=== PATIENT | male | born 1935 | race Caucasian/White ===

== ENCOUNTER 2016-11-13 22:44 | Inpatient (IN) | payer MEDICARE ==
[2016-11-14 00:11] LABS: Hematocrit 45 % (42-52); Hemoglobin 14.5 g/dl (14.0-18.0); Mean Corpuscular HGB Conc 33 g/dl (31-36); Mean Corpuscular Hemoglobin 29 pg (27-31); Mean Corpuscular Volume 89 fL (80-94); Mean Platelet Volume 8 um3 (7.4-10.4); Red Blood Count 5.01 10^6/ul (4.0-5.4); Red Cell Distribution Width 14 % (10.5-15)
[2016-11-14 00:13] LABS: Comments Flag Yes
[2016-11-14 00:14] LABS: Add Diff/Slide Review? Slide Review Added
[2016-11-14 00:15] LABS: Albumin 3.7 g/dL (3.2-5.2); BUN/Creatinine Ratio 25.8 (8-20); Calcium 9.3 mg/dL (8.6-10.3); EGFR African American 69.5 (>60); EGFR Non-African American 54.1 (>60); Total Protein 6.7 g/dL (6.4-8.9)
[2016-11-14 00:22] LABS: Troponin I 20.22 ng/mL (<0.04)
[2016-11-14] MEDS ORDERED: DOPamine 200 MG/250 ML IVPREM* 200 MG in PREMIX* 0 ML IV ONE (00:34)
[2016-11-14] MEDS ORDERED: Heparin for STEMI(*) 5,000 UNITS/ML 1 ML VIAL IV ONE (00:36)
[2016-11-14] MEDS ORDERED: Heparin VIAL(*) 5000 UNITS/ML VIAL (FIVE THOUSAND) ONE (00:39)
[2016-11-14] MEDS ORDERED: Ticagrelor* 90 MG TAB PO ONE (00:39)
[2016-11-14] MEDS ORDERED: DOPamine 200 MG/250 ML IVPREM* 200 MG/250 ML ML IV ONE (00:39)
[2016-11-14] MEDS: Ticagrelor* 90 MG TAB PO ONE ×2 (00:43→06:27)
[2016-11-14] MEDS ORDERED: Succinylcholine* 20 MG/ML 10 ML VIAL ONE (00:45)
[2016-11-14] MEDS ORDERED: Propofol* 100 ML ONE ×8 (00:50→22:35)
[2016-11-14] MEDS ORDERED: Etomidate* 2 MG/ML 20 ML VIAL (40 MG) ONE (00:50)
[2016-11-14] MEDS ORDERED: fentaNYL* 50 MCG/ML 2 ML VIAL (100 MCG VIAL) ONE ×2 (00:59→03:10)
[2016-11-14] MEDS ORDERED: Heparin 2 UNITS/ML IVPREMIX* 2,000 ML IV ONE ×2 (01:00→01:56)
[2016-11-14] MEDS ORDERED: Midazolam* 1 MG/ML 5 ML VIAL (5 MG) ONE (01:00)
[2016-11-14] MEDS ORDERED: Iohexol 350 (CONTRAST) 200 ML MDV IV ONE ×2 (01:00→01:01)
[2016-11-14] MEDS ORDERED: nitroGLYCERIN DRIP* 250 ML ONE (01:01)
[2016-11-14] MEDS ORDERED: Lidocaine 1% INJ* 10 MG/ML 30 ML SDV ONE (01:01)
[2016-11-14] MEDS ORDERED: Heparin 2 UNITS/ML IVPREMIX* 1,000 ML IV ONE (01:01)
--- NOTE | 2016-11-14 01:13 | ED ---
Davey Lynn Rebecca, scribed for Alyce Melvin MD on 11/13/16 at 2341 . Shortness of Breath - HPI Summary HPI Summary: Pt is an 81 y/o M BIBA who presents to ED c/o SOB. Reports that sx began gradually 3 days ago with him belching and experiencing an abnormal sensation in his throat, then tonight he began experiencing mild dyspnea at rest. SOB has been intermittent since onset. Sx alleviated by nothing, aggravated by laying down. Additionally c/o mild CP, beginning today at 1400 that lasted for a brief moment. C/o fatigue and palpitations. Denies diaphoresis, throat, arm or jaw pain. PMHx DM, HTN, HLD. No FHx CA <55 y/o. - History of Current Complaint Chief Complaint: EDRespiratoryDistress Hx Obtained From: Patient, Family/Superintendent General - Onset/Duration: Gradual Onset, Lasting Days - today, Still Present Timing: Intermittent Episodes Lasting: Current Severity: Moderate Dyspnea At: Rest Aggrevating Factors: Recumbent Position - Laying down Alleviating Factors: Nothing Associated Signs & Symptoms: Chest Pain Unrelated to Cough - mild - Allergy/Home Medications Allergies/Adverse Reactions: Allergies Allergy/AdvReac Type Severity Reaction Status Date / Time RAGWEED Allergy Unknown Uncoded 12/24/15 09:23 Reaction Details PMH/Surg Hx/FS Hx/Imm Hx Endocrine/Hematology History: Reports: Hx Diabetes - DM II Cardiovascular History: Reports: Hx Hypercholesterolemia, Hx Hypertension Denies: Hx Pacemaker/ICD, Other Cardiovascular Problems/Disorders GI History: Denies: Other GI Disorders Musculoskeletal History: Reports: Hx Arthritis - HIP, BACK, NECK, FINGERS, Hx Tendonitis - RIGHT SHOULDER Sensory History: Reports: Hx Cataracts - EARLY STAGES, Hx Contacts or Glasses - GLASSES, Hx Hearing Aid - MACK Opthamlomology History: Reports: Hx Cataracts - EARLY STAGES, Hx Contacts or Glasses - GLASSES - Surgical History Surgery Procedure, Year, and Place: HIP [id number] Hx Anesthesia Reactions: No Infectious Disease History: No Infectious Disease History: Denies: Traveled Outside the [place] in Last 30 Days - Family History Known Family History: Negative: Cardiac Disease - Social History Alcohol Use: Rare Alcohol Amount: 1 PER MONTH Substance Use Type: Reports: None Smoking Status (MU): Former Smoker Type: Pipe Amount Used/How Often: PIPE Have You Smoked in the Last Year: No Review of Systems Positive: Fatigue. Negative: Skin Diaphoresis Positive: Palpitations, Chest Pain - mild Positive: Shortness Of Breath - moderate dyspnea at rest Negative: Arthralgia - Denies arm, jaw and throat pain All Other Systems Reviewed And Are Negative: Yes Physical Exam - Summary Physical Exam Summary: General: Well appearing, no pain distress Skin: Warm, Skin Color Reflects Adequate Perfusion, Dry Eyes: EOMI, JARAD ENT: Pharynx normal, TMs normal Neck: Supple, nontender Respiratory: CTA, breath sounds present, no rhonchi, no wheezes, no rales Cardiovascular: RRR, no murmur, no rub, no gallop Abdomen: Soft, nontender, Non-distended, no guarding, no rebound Bowel: Present Musculoskeletal: MIRANDA, No edema Neuro: Sensory/motor intact, A&Ox3, CN intact 2-12 Psych: Affect/mood appropriate Triage Information Reviewed: Yes Vital Signs On Initial Exam: Initial Vitals Temp Pulse Resp BP Pulse Ox 97.2 F 109 19 88/57 91 11/13/16 23:03 11/13/16 23:03 11/13/16 23:03 11/13/16 23:03 11/13/16 23:03 Vital Signs Reviewed: Yes Procedures - Intubation Intubation Method: nasotracheal Tube Size (cm): 7.5 Medications: Succinylcholine Breath Sounds after Intubation: equal Intubation Complications: no complications Post Intubation Xray: Yes - tube 2 cm above arslan, etomidate 20 mg used for intubation Diagnostics - Vital Signs Vital Signs Temp Pulse Resp BP Pulse Ox 11/13/16 23:03 97.2 F 109 19 88/57 91 - Laboratory Lab Results: Lab Results 11/13/16 11/13/16 11/13/16 Range/Units 23:45 23:45 23:45 WBC 21.0 H (3.5-10.8) 10^3/ul RBC 5.01 (4.0-5.4) 10^6/ul Hgb 14.5 (14.0-18.0) g/dl Hct 45 (42-52) % MCV 89 (80-94) fL MCH 29 (27-31) pg MCHC 33 (31-36) g/dl RDW 14 (10.5-15) % Plt Count 206 (150-450) 10^3/ul MPV 8 (7.4-10.4) um3 Neut % (Auto) 83.9 H (38-83) % Lymph % (Auto) 6.5 L (25-47) % Harmon % (Auto) 9.1 H (1-9) % Eos % (Auto) 0 (0-6) % Baso % (Auto) 0.5 (0-2) % Absolute Neuts (auto) 17.6 H (1.5-7.7) 10^3/ul Absolute Lymphs (auto) 1.4 (1.0-4.8) 10^3/ul Absolute Monos (auto) 1.9 H (0-0.8) 10^3/ul Absolute Eos (auto) 0 (0-0.6) 10^3/ul Absolute Basos (auto) 0.1 (0-0.2) 10^3/ul Absolute Nucleated RBC 0.01 10^3/ul Nucleated RBC % 0 INR (Anticoag Therapy) 1.26 H (0.89-1.11) Sodium 133 (133-145) mmol/L Potassium 4.0 (3.5-5.0) mmol/L Chloride 102 (101-111) mmol/L Carbon Dioxide 21 L (22-32) mmol/L Anion Gap 10 (2-11) mmol/L BUN 33 H (6-24) mg/dL Creatinine 1.28 H (0.67-1.17) mg/dL Est GFR ( Amer) 69.5 (>60) Est GFR (Non-Af Amer) 54.1 (>60) BUN/Creatinine Ratio 25.8 H (8-20) Glucose 160 H (70-100) mg/dL Lactic Acid (0.5-2.0) mmol/L Calcium 9.3 (8.6-10.3) mg/dL Total Bilirubin 1.00 (0.2-1.0) mg/dL AST 101 H (13-39) U/L ALT 27 (7-52) U/L Alkaline Phosphatase 41 (34-104) U/L Troponin I 20.22 H* (<0.04) ng/mL B-Natriuretic Peptide ( - 100) pg/mL Total Protein 6.7 (6.4-8.9) g/dL Albumin 3.7 (3.2-5.2) g/dL Globulin 3.0 (2-4) g/dL Albumin/Globulin Ratio 1.2 (1-3) 11/13/16 11/13/16 Range/Units 23:45 23:45 WBC (3.5-10.8) 10^3/ul RBC (4.0-5.4) 10^6/ul Hgb (14.0-18.0) g/dl Hct (42-52) % MCV (80-94) fL MCH (27-31) pg MCHC (31-36) g/dl RDW (10.5-15) % Plt Count (150-450) 10^3/ul MPV (7.4-10.4) um3 Neut % (Auto) (38-83) % Lymph % (Auto) (25-47) % Harmon % (Auto) (1-9) % Eos % (Auto) (0-6) % Baso % (Auto) (0-2) % Absolute Neuts (auto) (1.5-7.7) 10^3/ul Absolute Lymphs (auto) (1.0-4.8) 10^3/ul Absolute Monos (auto) (0-0.8) 10^3/ul Absolute Eos (auto) (0-0.6) 10^3/ul Absolute Basos (auto) (0-0.2) 10^3/ul Absolute Nucleated RBC 10^3/ul Nucleated RBC % INR (Anticoag Therapy) (0.89-1.11) Sodium (133-145) mmol/L Potassium (3.5-5.0) mmol/L Chloride (101-111) mmol/L Carbon Dioxide (22-32) mmol/L Anion Gap (2-11) mmol/L BUN (6-24) mg/dL Creatinine (0.67-1.17) mg/dL Est GFR ( Amer) (>60) Est GFR (Non-Af Amer) (>60) BUN/Creatinine Ratio (8-20) Glucose (70-100) mg/dL Lactic Acid 1.3 (0.5-2.0) mmol/L Calcium (8.6-10.3) mg/dL Total Bilirubin (0.2-1.0) mg/dL AST (13-39) U/L ALT (7-52) U/L Alkaline Phosphatase (34-104) U/L Troponin I (<0.04) ng/mL B-Natriuretic Peptide 463 H ( - 100) pg/mL Total Protein (6.4-8.9) g/dL Albumin (3.2-5.2) g/dL Globulin (2-4) g/dL Albumin/Globulin Ratio (1-3) Result Diagrams: 11/13/16 23:45 11/13/16 23:45 Lab Statement: Any lab studies that have been ordered have been reviewed, and results considered in the medical decision making process. - Radiology CXR Xray Interpretation: Positive (See Comments) - CHF Radiology Interpretation Completed By: ED Physician - EKG 2305 Cardiac Rate: Tachycardia - 107 bpm EKG Rhythm: Sinus Rhythm ST Segment: Non-Specific - Diffuse ST depressions laterally and anterior laterally EKG Comparison: Other - 04/25/2014 - ST depressions are new from this EKG Course/Dx - Course Course Of Treatment: 81 yo male who arrived after 3 days of burping and brief cp this afternoon with sob tonight when he went to lie down. He initially looked quite good despite being hypotensive, hypoxic,tachycardic and tachypneic. EKG showed deep twave inversions anterio-laterally, case discussed initially with Nate who suggested talking with Carmella. During that time pt started having some more trouble oxygenating and was put on a non rebreather and he did admit to mild cp at that time. Carmella asked that a stemi be called and a plan was devised to start dopamine at 3ucg/kg/min along with the loading dose of heparin at 4000 units and 180 mg of brilinta. Pt started having more difficulty breathing and pt was intubated successfully and was started on propofol and OG was placed with a richards. Carmella is now in the patient room is taking the pt to the medical laboratory manager with the brilinta - Diagnoses Provider Diagnoses: Myocardial infarct, Congestive heart failure (CHF) During the Visit The Following Alert/Code Occurred: STEMI - 0035 - Physician Notifications Discussed Care of Patient With: Dr. Sullivan, who advised a consultation with Dr. Hyde. Dr. Hyde, at 0032 who advised to call a STEMI alert after throoughly discussing the case. Time Discussed With Above Provider: 00:25 - Critical Care Time Critical Care Time: 30-74 min - 74 minutes Discharge - Discharge Plan Condition: Critical Disposition: ADMITTED TO [facility] documentation as recorded by the Davey motley Rebecca accurately reflects the service I personally performed and the decisions made by me, Alyce Melvin MD.
[2016-11-14] MEDS ORDERED: Iodixanol* (CONTRAST) 320 MG/ML 100 ML SDV ONE ×2 (01:55→02:55)
[2016-11-14] MEDS ORDERED: LORazepam INJ* 2 MG/ML 1 ML VIAL ONE ×2 (02:00→03:01)
[2016-11-14 02:08] LABS: PCO2 Arterial 36 mmHg (35-45)
[2016-11-14] MEDS ORDERED: Heparin DRIP 25,000 UNITS(*) 25,000 UNITS/500 ML BAG ONE (02:13)
[2016-11-14] MEDS ORDERED: Eptifibatide IV (Load dose)(*) 2 MG/ML 10 ml VIAL ONE (02:37)
[2016-11-14] MEDS ORDERED: NitroPRUSSide* 25 MG/ML 2 ML VIAL IVPB ONE (02:43)
[2016-11-14] MEDS ORDERED: Bivalirudin(*) 250 MG VIAL ONE (03:06)
[2016-11-14] MEDS ORDERED: Norepinephrine 16MCG/ML IVPRE* 8,000 MCG/500 ML BAG IV ONE (03:07)
[2016-11-14] MEDS ORDERED: Heparin(*) 1000 UNIT/ML 10 ML VIAL CATH LAB IV ONE (03:07)
[2016-11-14] MEDS ORDERED: Nitroglycerin TAB 0.4 MG* 0.4 MG TAB SL PRN (03:47)
[2016-11-14] MEDS: Norepinephrine 16MCG/ML IVPRE* 4,000 MCG/250 ML BAG IV SCH ×6 (05:01→22:57)
[2016-11-14] MEDS: Propofol* 500 MG/50 ML BTL IV SCH ×4 (05:06→22:17)
--- NOTE | 2016-11-14 06:12 | CONS ---
CRITICAL CARE CONSULT: DATE OF CONSULTATION: 11/14/16 REASON FOR CONSULTATION: Cardiogenic shock. HISTORY OF PRESENT ILLNESS: This patient is an 81-year-old white male who presented to the emergency department this evening with acute onset of chest pain and shortness of breath and had marked troponin elevations and ST depression in the lateral precordial leads along with low blood pressure. The patient was subsequently intubated, brought to the catheterization lab, where a left circumflex lesion was opened and stented and an intraaortic balloon pump was inserted. In the labor trainer, blood pressure was maintained at a mean level above 65 mmHg with a combination of intraaortic balloon pumping, Levophed at 20 mcg per minute, and dopamine at 5 mcg/kg per minute. The patient had been intubated and was sedated with propofol, fentanyl, and Ativan. Lactate was normal in the emergency department and blood gases at the beginning of the catheterization showed no evidence of a metabolic acidosis (pCO2 was 36 and pH was 7.36). According to the patient's , he has a history of hypertension, hypercholesterolemia, type 2 diabetes, macular degeneration, osteoarthritis, and he is status post right hip replacement. OUTPATIENT MEDICATIONS: Include: 1. Quinapril/hydrochlorothiazide 1 tablet daily. 2. Atorvastatin 10 mg daily. 3. Cholecalciferol 2000 units daily. 4. Coenzyme Q 200 mg daily. 5. Eye drops (unknown identity). ALLERGIES: There were no known drug allergies. SOCIAL HISTORY: The patient is and lives with his . There is no history of smoking, alcohol, or illicit drug abuse. REVIEW OF SYSTEMS: Unobtainable. PHYSICAL EXAM: The patient was unresponsive due to intravenous sedation. Vital Signs: Temp was 97.2, pulse rate was 120, blood pressure on a balloon pump showed a mean pressure of 70, arterial O2 sats were 96% with an FiO2 of 100 %. HEENT: Pupils were mid position and sluggishly reactive. There was no facial asymmetry. Neck: There was no jugular venous distention or masses. Thorax: There were coarse rhonchi, but no crackles. Cardiac: Rhythm was regular and there were no murmurs or rubs. Abdomen: Not distended. Extremities: Cool, but not cyanotic or edematous. DIAGNOSTIC STUDIES/LAB DATA: Admission laboratory data was significant for a white count of 21,000, glucose of 160, troponin of 20.2, BNP of 463, and a lactate of 1.3. Chest x-ray showed mild cardiomegaly and venous congestion. EKG was as described. IMPRESSION: Acute myocardial infarction with cardiogenic shock. MANAGEMENT PLAN: The patient will be maintained on pressors and intraaortic balloon counterpulsation as needed to maintain a mean pressure of 65 mmHg and a urine output of 0.5 cc/kg per hour. We will monitor serum lactates and wean the balloon pump when feasible. Prognosis is guarded at this time. CRITICAL CARE TIME: Total time spent with this patient in the labor trainer, and the intensive care unit, is 3-1/2 hours. [id number]/[facility] #: [id number] SHERRY
[2016-11-14] MEDS ORDERED: Heparin DRIP 25,000 UNITS(*) 25,000 UNITS/500 ML BAG IV SCH (06:30)
[2016-11-14 06:56] LABS: Hematocrit 46 % (42-52); Hemoglobin 14.8 g/dl (14.0-18.0); Mean Corpuscular HGB Conc 32 g/dl (31-36); Mean Corpuscular Hemoglobin 29 pg (27-31); Mean Corpuscular Volume 90 fL (80-94); Mean Platelet Volume 9 um3 (7.4-10.4); Red Blood Count 5.12 10^6/ul (4.0-5.4); Red Cell Distribution Width 14 % (10.5-15); White Blood Count 25.8 10^3/ul (3.5-10.8)
[2016-11-14 06:58] LABS: Comments Flag Yes
[2016-11-14] MEDS: Fentanyl PCA (Continuous Infusion)* 20 ML PCA SCH ×4 (06:59→20:04)
[2016-11-14] MEDS ORDERED: Heparin VIAL(*) 5000 UNITS/ML VIAL (FIVE THOUSAND) IV SCH (07:00)
[2016-11-14 07:10] LABS: Albumin 3.3 g/dL (3.2-5.2); BUN/Creatinine Ratio 20.7 (8-20); Calcium 8.9 mg/dL (8.6-10.3); EGFR African American 48.8 (>60); EGFR Non-African American 37.9 (>60); HDL Cholesterol 41.3 mg/dL; Potassium 4.4 mmol/L (3.5-5.0); Total Protein 6.3 g/dL (6.4-8.9)
[2016-11-14 07:23] LABS: Troponin I 45.86 ng/mL (<0.04)
[2016-11-14] MEDS: Insulin LISPRO* 1 UNITS UNIT SUBCUT SCH ×5 (07:47→20:51)
[2016-11-14] MEDS: Ticagrelor* 90 MG TAB PO SCH ×2 (08:19→20:52)
[2016-11-14] MEDS: Aspirin Low Dose CHEW TAB* 81 MG PO SCH (08:19)
[2016-11-14] MEDS: Atorvastatin* 80 MG TAB PO SCH ×2 (08:19→16:38)
--- NOTE | 2016-11-14 08:28 | RAD ---
Indication: Shortness of breath, slight chest pain. Comparison: April 25, 2014 Technique: Upright AP 2328 hours Report: Prominent interstitial markings with thickened peripheral intralobular markings. Mild patchy alveolar opacities most prominent in the perihilar regions. Grossly clear pleural spaces. Negative for pneumothorax. Upper normal heart size. Prominent ill-defined central pulmonary vasculature. IMPRESSION: Mild alveolar and interstitial pulmonary edema.
--- NOTE | 2016-11-14 08:30 | RAD ---
Indication: Post intubation. Shortness of breath. Comparison: 2328 hours exam of the same date. Technique: Upright AP 0055 hours REPORT AND IMPRESSION: Endotracheal tube tip approximately 3.5 cm above the Courtney. Worsening findings of alveolar and interstitial pulmonary edema compared with the 2328 hours exam. No definitive pleural effusions.
[2016-11-14 09:02] LABS: Magnesium 2.2 mg/dL (1.9-2.7)
--- NOTE | 2016-11-14 09:53 | RAD ---
Indication: STEMI; post balloon pump. Comparison: November 13, 2016 Technique: Upright AP 0649 hours Report: Endotracheal tube tip 3.7 cm above the Courtney. Nasogastric tube passes to the stomach and outside the [id number] caudally. Severe bilateral perihilar alveolar opacities as well as prominent and ill-defined central pulmonary vasculature. Prominent interstitial markings with thickened peripheral interlobular septa. Small RIGHT pleural effusion. Negative for pneumothorax. IMPRESSION: Worsening of pulmonary edema compared with the recent prior exam.
--- NOTE | 2016-11-14 10:36 | RAD ---
Indication: STEMI. Balloon pump. Comparison: 0649 hours November 14, 2016 Technique: Supine chest 1000 hours Report: The periphery of the LEFT hemithorax is not included in the [id number]. Endotracheal tube tip 4 cm above the Courtney. Nasogastric tube passes to the body of the stomach. Cephalocaudal oriented radiopaque structure likely corresponding with the cephalad margin of the aortic balloon pump is identified at the level of the aortic arch without change. Persistent finding of severe alveolar and interstitial pulmonary edema. Small pleural effusions. Negative for pneumothorax. IMPRESSION: Cephalocaudal oriented radiopaque structure likely corresponding with the cephalad margin of the aortic balloon pump is identified at the level of the aortic arch without change. Persistent finding of severe alveolar and interstitial pulmonary edema.
--- NOTE | 2016-11-14 11:24 | HP ---
ADMISSION HISTORY AND PHYSICAL: DATE OF ADMISSION: 11/14/16 CHIEF COMPLAINT: The patient brought to emergency room with profound shortness of breath, found to have profound ST-segment depressions, and STEMI alert calls by emergency room physician. HISTORY OF PRESENT ILLNESS: The patient is an 81-year-old gentleman with no prior known cardiac history. It should be noted that the history was obtained by talking with Dr. Alyce Melvin, the emergency room physician as well as talking with the as the patient is already intubated and on sedation therapy. According to the , the patient has no prior history of coronary artery disease, specifically no history of myocardial infarction, congestive heart failure, or significant heart rhythm disturbance. She states that some 2 days ago, he started having atypical complaints of whole body pain like he was hit by a bat. night, he started having burping sensations which proceeded into Wednesday. He went for a walk with his dog and did not even walk a short walking, came back, and said he just felt like he would not make it to do a complete walk. His tried to urge him to go Urgent Care, but he did not want to do that at all. He went to the eye doctor and came back and felt a little dizzy. He still was having some burping going on with no appetite. His asked him many times during the day whether or not he was having specific chest discomfort and he said no. Eventually at 9:45 at night, she noticed him huffing and puffing and he had gotten up from a lying down position. His noted him to be short of breath. He said he just had a sound in his throat that was better when he sat up. She was quite concerned about this and as such she called the ambulance. The patient was brought to the emergency room at [facility] where Dr. Alyce Melvin evaluated the patient. The patient had significant ST-segment depression in V2 through V6 and 1 in AVL, and she first spoke with Dr. Sullivan, the client relations associate nurse extern. He discussed the case with her. She told him he was in congestive heart failure and a troponin result came back at 20. At that point, he instructed her to call me, the business banker. By the time I arrived, the patient was already intubated and sedated. I could only get a history from the patient's and Dr. Melvin. I discussed the issue of proceeding to the catheterization laboratory to assess the coronary arteries and potentially intervene if needed. I discussed the risks and benefits with his of cardiac catheterization with an eye toward revascularization and probable intra-aortic balloon pump placed as his blood pressure throughout his presentation had been low in the 80s. She understood them and wished to proceed. PAST MEDICAL HISTORY: Includes a history of noninsulin-requiring diabetes mellitus, hypertension, hyperlipidemia. He used to smoke but quit back in 2003 after many years of smoking. He has no family history according to the old records of cardiac issues. Past medical history includes hyperlipidemia, hypertension, obesity, type 2 diabetes on oral management, macular degeneration, hearing loss. PAST SURGICAL HISTORY: Includes a hip replacement in 2013. MEDICATIONS: At home had included: 1. Quinapril/hydrochlorothiazide, dose not certain. She believes it is 20/ possibly 12.5. 2. Metformin 500 mg b.i.d. 3. Atorvastatin once a day. 4. Medications for his macular degeneration, she believes is PreserVision. 5. Aspirin one a day. ALLERGIES: According to the , he has no known allergies REVIEW OF SYSTEMS: As mentioned is unobtainable. PHYSICAL EXAMINATION GENERAL: When I see him in the emergency room, the patient is intubated, is impossible to assess for JVP with the patient in a lying position. Carotids are not able to be heard well due to the respirator. VITAL SIGNS: Blood pressure 88/57, pulse 109, afebrile, O2 saturation 97% on oxygen through the intubation. HEENT: Mouth has moist mucosa. CHEST: Has coarse breath sounds bilaterally with question of crackles at the base. HEART: Reveals no visible heaves. No palpable heaves or thrills. Distant heart sounds at best. Normal S1, S2. No significant systolic or diastolic murmur. ABDOMEN: Obese, soft, nontender. EXTREMITIES: Peripheral pulses, femoral pulses are present, but deep and somewhat weak bilaterally. No bruits noted. Distal pulses are diminished. NEUROLOGIC: The patient is sedated. MUSCULOSKELETAL: Impossible to assess with sedated state. PSYCHIATRIC: Impossible to assess in sedated state. LABORATORY DATA: Laboratory results had revealed a white blood count 21,000, hemoglobin and hematocrit of 14.5 and 45, platelet count of 206,000. Chemistry reveals sodium 133, potassium 4.0, chloride 102, bicarb 21, BUN and creatinine are 13 and 1.28. Initial SGOT 101, troponin 20.22. SGPT is 27. Lactic acid 1.3. Electrocardiogram from the emergency room dated 11/13/16, time 2305, reveals sinus tachycardia heart rate of 106. There is diffuse ST-segment depression in V2 through 6 as well as 1 in AVL. There is minimal J-point elevation in lead 3. None in AVF and minimal slight ST-segment depression in lead [address]- segments. OVERALL ASSESSMENT: Mr. Johnson presents now in the throes of acute coronary syndrome with hemodynamic instability requiring now a dopamine institution with pressure in the 80s. EKG has diffuse ST-segment depression anteriorly which may represent a posterior infarction with ST-segment elevation. At this point in time, the risks and benefits were explained to his . She understands them. I also explained that we will probably be placing an intra-aortic balloon pump as well and she understood that as well. The patient received aspirin already and has been on aspirin once a day. The patient has received a bolus of 4,000 units of heparin and he will receive Brilinta via the NG tube in the labor employment associate once we are able to get the coronary anatomy and make sure emergent bypass surgery is not needed as the choice. The understands that he is critically ill at this point in time and hopefully will stabilize by potential revascularization and intra-aortic balloon pump placement. The patient is noted to have mild renal insufficiency as well on current laboratory results. CC: Dr. Williams Lowery. * [id number]/[facility] #: [id number] ROCKLAND PSYCHIATRIC CENTERHeydi
[2016-11-14 11:33] LABS: Troponin I 45.39 ng/mL (<0.04)
--- NOTE | 2016-11-14 13:28 | PN ---
Critical Care Services: Patient continues on IABP at 1:1. Also on levophed at 25 mcg/min and dopamine at 3 mcg/kg/min. Urine output averaging 30 - 40 cc/hr. NEW PROBLEM: CXR this AM shows diffuse pulmonary infiltration, consistent with hydrostatic pulmonary edema or ARDS. Vital Signs: Temp Pulse Resp BP SpO2 FiO2 97.2 F 45 16 98/70 100 100 Physical Exam: Gen:Unresponsive: on propofol and fentanyl HEENT: Pupils midposition and sluggishly reactive. No facial asymmetry. Lungs: Crackles posteriorly on both sides. Cardiac: I-II/ early systolic murmur heard throughout the precordium. Extremities:Distal pulses intact (balloon in left groin) Fluid Balance (Past 24 Hours): 11/14/16 06:59 Intake Total Output Total 350 Balance -350 Weight 216 lb 4oz Intake: IV Fluids NS Medicated IV CC - Dopamine CC - Norepinephrine/ Levophed CC - Propofol/Diprivan Output: [place] 350 Labs: 11/14/16 11/14/16 05:58 05:58 WBC 25.8 H Hgb 14.8 Hct 46 Plt Count 224 Sodium 130 L Potassium 4.4 Chloride 97 L Carbon Dioxide 23 BUN 36 Creatinine 1.74 Glucose 198 Lactic Acid 2.1 Calcium 8.9 Magnesium 2.2 Total Bilirubin 1.00 AST 146 ALT 28 Alkaline Phosphatase 43 Total Creatine Kinase 1488 CK-MB (CK-2) 235.7 Troponin I 45.86 Total Protein 6.3 L Albumin 3.3 Globulin 3.0 Albumin/Globulin Ratio 1.1 Triglycerides 165 Cholesterol 135 Studies: CXR: As described Nutrition: NPO Impression: ACS with cardiogenic shock and hydrostatic pulmonary edema vs ARDS (I suspect the latter) Plan: 1. Continue IABP. 2. Attempt to wean vasopressor drugs. 3. Restrict fluid intake as much as possible. Diuresis not a good idea in light of vasopressor requirements. 4. Ventilation with APRV Critical Care Time: 40 minutes
[2016-11-14 18:34] LABS: Troponin I 38.56 ng/mL (<0.04)
[2016-11-14] MEDS: DOPamine 200 MG/250 ML IVPREM* 200 MG/250 ML ML IV SCH (22:16)
[2016-11-14] MEDS ORDERED: Chlorhexidine MOUTHWASH 0.12%* 15 ML UDC ONE (23:20)
[2016-11-15] MEDS: Chlorhexidine MOUTHWASH 0.12%* 15 ML UDC TOPICAL SCH ×6 (00:20→21:00)
[2016-11-15] MEDS: Insulin LISPRO* 1 UNITS UNIT SUBCUT SCH ×6 (00:36→21:01)
[2016-11-15] MEDS: Fentanyl PCA (Continuous Infusion)* 20 ML PCA SCH ×2 (00:36→04:54)
[2016-11-15] MEDS: Norepinephrine 16MCG/ML IVPRE* 4,000 MCG/250 ML BAG IV SCH ×9 (01:25→23:10)
[2016-11-15] MEDS: Propofol* 100 ML IV SCH ×5 (01:28→20:48)
[2016-11-15] MEDS: DOPamine 200 MG/250 ML IVPREM* 200 MG/250 ML ML IV SCH ×2 (05:30→12:40)
[2016-11-15 05:33] LABS: Hematocrit 42 % (42-52); Hemoglobin 13.5 g/dl (14.0-18.0); Mean Corpuscular HGB Conc 32 g/dl (31-36); Mean Corpuscular Hemoglobin 29 pg (27-31); Mean Corpuscular Volume 90 fL (80-94); Mean Platelet Volume 8 um3 (7.4-10.4); Red Blood Count 4.64 10^6/ul (4.0-5.4); Red Cell Distribution Width 14 % (10.5-15); White Blood Count 19.6 10^3/ul (3.5-10.8)
[2016-11-15 05:34] LABS: Add Diff/Slide Review? Slide Review Added; Comments Flag Yes
[2016-11-15 05:49] LABS: BUN/Creatinine Ratio 18.2 (8-20); Calcium 7.9 mg/dL (8.6-10.3); EGFR African American 34.3 (>60); EGFR Non-African American 26.7 (>60); Globulin 2.8 g/dL (2-4); Potassium 5.2 mmol/L (3.5-5.0); Total Bilirubin 0.8 mg/dL (0.2-1.0); Total Protein 5.8 g/dL (6.4-8.9)
[2016-11-15] MEDS: Aspirin Low Dose CHEW TAB* 81 MG PO SCH (08:56)
[2016-11-15] MEDS: Ticagrelor* 90 MG TAB PO SCH ×2 (08:57→21:00)
[2016-11-15] MEDS ORDERED: Pantoprazole IV* 40 MG IV SCH (09:00)
--- NOTE | 2016-11-15 09:42 | ECHO ---
Amended Report Patient: LIZETH STRATTON [facility] Rec#: [id number] : 1935 Date: 11/15/2016 Age: 81y Height: 172.72 cm / 68.0 in Weight: 91.17 kg / 200.9 lbs Sex: M BSA: 2.05 Room#: ICU-3 Admit Date#: 11/14/2016 Type: Inpatient Referring: Dangelo Weir MD Reading: Dangelo Weir MD Controlled Atmospheric Furnace Brazer: Francie Hutchins CARMINA Controlled Atmospheric Furnace Brazer: DALE CC: Williams Lowery MD Transthoracic Echocardiogram Indication: STEMI BP: 93/47 HR: 107 Rhythm: Tachycardia Findings History: STEMI,intubated,sedated,mechanically ventilated,IABP1:1, DM,HTN,HLD,obesity, former smoker. Technical Comments: The study was technically limited due to the patient's inability to lay in the left lateral decubitus position. Completed at 0845. The study is technically limited due to patient being intubated and on a ventilator. Left Ventricle: The left ventricular chamber size is normal. Global left ventricular wall motion and contractility are within normal limits. There is normal left ventricular systolic function. The estimated ejection fraction is 60-65%. The patient was unable to perform a Valsalva maneuver. Left Atrium: The left atrium is slightly dilated. Right Ventricle: The right ventricle is not well visualized. Right Atrium: The right atrial cavity size is normal. Aortic Valve: The aortic valve structure is not well visualized. The aortic valve is trileaflet. The aortic valve leaflets are mildly thickened. There is no evidence of aortic regurgitation. There is borderline aortic stenosis present. Mitral Valve: There is mitral annular calcification. There is a trace of mitral regurgitation. There is no evidence of mitral stenosis. Tricuspid Valve: The tricuspid valve leaflets are normal. There is mild tricuspid regurgitation. Unable to estimate the right ventricular systolic pressure. There is no tricuspid stenosis. Pulmonic Valve: The pulmonic valve appears normal in structure and function. There is a trace pulmonic regurgitation. There is no pulmonic stenosis. Pericardium: The pericardium appears normal. Aorta: There is no dilatation of the ascending aorta. There is no dilatation of the aortic arch. There is no dilation of the aortic root. Pulmonary Artery: The main pulmonary artery appears normal. Venous: Unable to accurately comment on the size collapsibility of the IVC as the patient in known to be on mechanical ventilation. Conclusions The left ventricular chamber size is normal. There is normal left ventricular systolic function. The estimated ejection fraction is 60-65%. There is borderline aortic stenosis present. There is a trace of mitral regurgitation. There is mild tricuspid regurgitation. There is a trace pulmonic regurgitation. No reports of prior studies offered for comparison. AMENDED PART OF REPORT: Per plan a reassessment of LV systolic function was performed with IABP on 1:@ showing no deterioration in LV systolic function. A repeat analysis will be performed with the IABP on 1:4. Measurements Name Value Normal Range RVIDd (AP) 2D 2.3 cm (0.9 - 2.6) RAd ISD 4CH 5.4 cm (3.4 - 4.9) RA (A4C)W 3.7 cm (2.9 - 4.6) IVSd (2D) 1.1 cm (0.6 - 1) LVPWd (2D) 1 cm (0.6 - 1) LVIDd (2D) 3.7 cm (3.6 - 5.4) LVIDs (2D) 3 cm - LV FS (2D) 19 % (25 - 45) Aortic Annulus 1.7 cm (1.4 - 2.6) Ao root diameter (2D) 3.5 cm (2.1 - 3.5) Ascending Ao 3.3 cm (2.1 - 3.4) Aortic arch 2.2 cm (1.8 - 3.4) Descending Ao 0.6 cm - LA dimension (AP) 2D 4 cm (2.3 - 3.8) LAd ISD 4CH 6.4 cm (2.9 - 5.3) LA ISD 4CH W 4.1 cm (2.5 - 4.5) Name Value Normal Range LA ESV SP 4CH (A/L) 58 ml - LA ESV SP 2CH (A/L) 33 ml - LA ESV BP (A/L) 45 ml - LA ESV BP (A/L) index 21.9 ml/m2 - LA ESV SP 4CH (MOD) 57 ml - LA ESV SP 2CH (MOD) 32 ml - Name Value Normal Range MV E-wave Vmax 1.1 m/sec - MV deceleration time 199 msec - MV A-wave Vmax 0.8 m/sec - MV E:A ratio 1.32 ratio - LV septal e' Vmax 0.06 m/sec - LV lateral e' Vmax 0.09 m/sec - LV E:e' septal ratio 18.33 ratio - LV E:e' lateral ratio 12.22 ratio - Name Value Normal Range AV Vmax 1.5 m/sec - AV VTI 23.5 cm - AV peak gradient 8.85 mmHg - AV mean gradient 4.42 mmHg - LVOT diameter 1.7 cm - LVOT Vmax 1.4 m/sec - LVOT VTI 18.7 cm - LVOT peak gradient 7.73 mmHg - LVOT mean gradient 3.04 mmHg - SID (continuity Vmax) 2.4 cm2 - SID (continuity VTI) 2.3 cm2 - Name Value Normal Range MR Vmax 2.89 m/sec - MR VTI 36.07 cm - Name Value Normal Range TR Vmax 2.7 m/sec - TR peak gradient 30 mmHg - Name Value Normal Range PV Vmax 0.2 m/sec - PV peak gradient 0.22 mmHg -
[2016-11-15] MEDS ORDERED: Heparin VIAL(*) 5000 UNITS/ML VIAL (FIVE THOUSAND) ONE (11:02)
[2016-11-15] MEDS ORDERED: Heparin VIAL(*) 5000 UNITS/ML VIAL (FIVE THOUSAND) IV ONE (11:11)
--- NOTE | 2016-11-15 11:12 | RAD ---
Indication: ST elevation NC. Comparison: November 14, 2016 Technique: Supine AP 0550 hours Report: Endotracheal tube tip 3 cm above the Courtney. Nasogastric tube passes to the stomach and outside the [id number] caudally. Upper normal heart size. Prominent ill-defined central pulmonary vasculature and bilateral significant perihilar alveolar opacities as well as mild diffuse prominence of interstitial markings. Trace pleural effusions. Negative for pneumothorax. IMPRESSION: Alveolar and interstitial edema without significant interval change.
--- NOTE | 2016-11-15 11:26 | PN ---
Critical Care Services: Remains on IABP plus levophed (30 mcg/min) and dopamine (5 mcg/kg/min). Additional problems since cath include pulmonary edema/ARDS, and REYNALDO. Vital Signs: Temp Pulse Resp BP SpO2 FiO2 98.7 F 57 14 93/48 97 75 Physical Exam: Gen:Unresponsive HEENT:Pupils midposition and sluggishly reactive. Lungs:Clear (!) Cardiac: (unable to evaluate due to IABP sounds. Extremities: Balloon insertion site in left groin and femoral vein catheter in right groin. Pedal pulses present bilaterally. No cyanosis or edema. Fluid Balance (Past 24 Hours): 11/15/16 06:59 Intake Total 5249 Output Total 1145 Balance +4104 Weight 216 lb Intake: IV Fluids 602.8 NS 602.8 Medicated IV 4647 CC - Dopamine 771 CC - Norepinephrine/ 2490 Levophed CC - Propofol/Diprivan 815 Heparin 571 Output: NG Tube Drainage Amount 200 G Tube 400 [place] 545 Labs: 11/15/16 11/15/16 05:20 05:20 WBC 19.6 Hgb 13.5 Hct 42 Plt Count 166 Sodium 130 Potassium 5.2 Chloride 98 L Carbon Dioxide 24 BUN 43 Creatinine 2.36 Glucose 141 Lactic Acid 1.2 Total Protein 5.8 L Albumin 3.0 L Globulin 2.8 Albumin/Globulin Ratio 1.1 Studies: CXR: Improved. Cardiac ultrasound - good systolic function (EF > 60%). No MR. Nutrition: NPO Impression: 1. Pulmonary edema/ARDS improving 2. REYNALDO - could be due to inflammatory injury or the IABP. 3. Continuing hypotension in the face of adequate ventricular function - ? inflammatory vasodilation. 4. Overall, this picture may be consistent with inflammatory multiorgan failure. Plan: 1. Remove IABP, 2. Check random cortisol, 3. Blood cultures (although doubt sepsis), 4. Maintain MABP of 65-70 mmHg. Overall prognosis very guarded. Critical Care Time: 45 minutes
[2016-11-15] MEDS ORDERED: Sodium Polystyrene ORAL.SOL* 15 GM/60 ML BTL PO ONE (16:10)
--- NOTE | 2016-11-15 16:14 | CATH ---
CARDIAC CATHETERIZATION AND INTERVENTIONAL REPORT: DATE OF PROCEDURE: 11/14/16 - ROOM #ICU-03 INDICATION FOR PROCEDURE: The patient presents to the emergency room with prolonged episodes of shortness of breath and questionable chest discomfort with grossly abnormal EKG raising the question of posterior ST-segment elevation IL versus diffuse anterolateral ischemia with hypotension. PROCEDURE: Coronary arteriography, intra-aortic balloon placement, primary stenting of mid circumflex with a 2.5 x 16 mm long Synergy drug-eluting stent with post deployment high inflation to 2.6 to 2.7 mm, Pronto thrombectomy attempted intervention into diffusely diseased right coronary artery, left heart catheterization. PROCEDURE IN DETAIL: The patient was examined in the emergency room. Of note, the patient was already intubated and sedated and as such no history could be obtained from the patient. This was obtained from the family and the emergency room physician. The risks and benefits were explained to the , who wished to proceed for emergent cardiac catheterization. The patient was taken to the cardiovascular laboratory. Of note, Dr. Dangelo Plasencia, measuring clerk, was available during the catheterization intervention for hemodynamic treatment with pressor therapy. The patient was prepped and draped in the sterile fashion. The right groin area was anesthetized with 1% lidocaine and the right femoral vein was initially cannulated and a 7-Palauan introducer was placed in the vein and followed by triple-lumen catheter for pressor administration. The right femoral artery was cannulated and a 6-Palauan long sheath was placed. Coronary arteriography was performed using a 5-Palauan 4 Michael left coronary catheter and 5-Palauan 4 Michael right coronary catheter. An angled pigtail catheter was advanced to the ascending aorta where central aortic pressure was recorded. The catheter was then passed across the aortic valve into the left ventricle, where left ventricular pressure was recorded. Because of a markedly elevated left ventricular end-diastolic pressure and relative hypotension, an intra-aortic balloon pump was placed via the left groin area. Following this, the decision was made to intervene first into the critical lesion in the mid circumflex. The right coronary artery seemed to have an appearance of chronic occlusion as there were collaterals noted from the distal LAD and septal perforators to the right posterior descending artery and right coronary artery. The patient had received heparin therapy but with an ACT still subtherapeutic , an Angiomax bolus was given and Angiomax drip was started. The patient received Brilinta 180 mg via the NG tube and had already received aspirin therapy prior to coming to the public works laborer. A 0.014 All Star wire was advanced down the circumflex artery and primary stenting was performed utilizing 2.5 x 16 mm long drug-eluting stent. Of note, there was marked slow flow after this for which balloon angioplasty was then done as well as cautious intracoronary Nipride. The patient also received 1 bolus of intracoronary Integrilin. With that, there was improvement and congregation of flow overtime. Post dilatations have been made utilizing the 2.5 x 8 mm long NC Emerge balloon to high pressures to obtain 2.6 to 2.7 mm. Of note, a Pronto extraction catheter was also passed into the circumflex area to attempt to remove any thrombus within the stented area. Attention was then turned to the right coronary artery. Guiding views were obtained utilizing a 6-Palauan ART4 curve catheter with side holes. Initially, an exchange length All Star wire was attempted to utilize to traverse the right coronary artery. It was unable to get thorough the long subtotally occluded segment. Support was tried to be made utilizing an [id number] 2.0 x 12 mm long Emerge balloon. Despite multiple wires, the mid area of the right coronary artery could not be traversed. Because of the fact that the patient had established collaterals already, it was my impression that this was probably chronically occluded right coronary artery with collaterals and as such , the procedure was aborted. At that point in time, injections were made into the right femoral arterial sheath to assess the eligibility to utilize closure device. It was found to be acceptable for this and as such a 6/7-Palauan Mynx closure device was deployed. The patient was then transported to the intensive care unit. Of note, the patient had been intubated and Respiratory was present throughout the case for support for the respirator and Dr. Plasencia was available as mentioned earlier for consultation for both respiratory and pressure support. The patient was managed with fentanyl and Ativan as well as having had Levophed. The patient was on a propofol drip and dopamine was also utilized as well as mentioned intracoronary Nipride was given transiently for slow flow and heparin drip was started at the end of the case after the Angiomax drip was stopped in light of the intra-aortic balloon pump in place. The total contrast used was 285 cc of Visipaque dye. The radiation exposure included 24.8 minutes of fluoro time. The air kerma radiation was 2909 milligray. The DAP radiation was 1849 microgray per sq. m. RESULTS: HEMODYNAMIC DATA: Left heart catheterization - central aortic pressure was recorded at 92/57 with a mean of 69 (on pressor therapy). LV pressure was 91/left ventricular end -diastolic pressure of 30. CORONARY ARTERIOGRAPHY: A. Left coronary artery: 1. Left main - there was minimal tapering of the distal left main of 15%. 2. Left anterior descending artery - the ostial middle left anterior descending artery was calcified with what appeared to be as much as a 70% ostial narrowing noted. The left anterior descending artery supplied multiple thin diagonal branches and traversed toward the apical region. There appeared to be collateralization from the distal right coronary artery to the posterior descending artery of the right coronary artery and through septal perforators as well. The proximal portion of the left anterior descending artery appeared to have narrowing of 45% to 50%. The mid portion had an area of 45% to 50% as well. 3. Circumflex artery - a non-dominant vessel with mild proximal 25% to 30 % narrowing. It supplied a moderate size mid obtuse marginal branch which appeared to have mild mid disease of 35% to 40%. Past this point, there was a small obtuse marginal branch followed by critical 90% to 95% obstruction seen. The vessel then supplied multiple thin obtuse marginal branches and ending in a low lying posterior left ventricular branch. Collateral blood flow seemed to from the distal circumflex as well to the right coronary artery. These were not well visualized. In most views, it appeared most of the collateral blood flow to the right coronary artery was from the left anterior descending artery. B. Right coronary artery - diffusely diseased with a proximal/ostial 35% to 40% obstruction followed by a proximal 85% to 90% obstruction with a subtotally occluded mid segment diffusely diseased followed by a distal 99% lesion. INTERVENTION INTO CIRCUMFLEX ARTERY: Successful reduction of critical 90% to 95% mid circumflex lesion with primary stenting followed by treatment of transient slow flow with thrombectomy , balloon angioplasty, and intracoronary Nipride with residual stenosis of less than 5% NOHEMY-3 flow, no dissection seen. Placement of a 2.5 x 16 mm long Synergy drug-eluting stent post dilated to 2.6 to 2.7 mm. ATTEMPTED INTERVENTION INTO DIFFUSELY DISEASED RIGHT CORONARY ARTERY: Unsuccessful despite multiple wire attempts with balloon supported technique. Most likely, a chronically totally occluded right coronary artery as collaterals were appeared to be already established within the left anterior descending artery to the right coronary artery as described above. OVERALL ASSESSMENT: Successful intervention to mid circumflex with multivessel coronary artery disease; hypotension, necessitating dual-pressor support under Dr. Dangelo Plasencia' s (measuring clerk) guidance. At this point in time, the patient will be maintained on Brilinta, aspirin. Attempts will be made to wean pressors down under Dr. Plasencia's guidance. Respirator support and management will be under Dr. Dangelo Plasencia's guidance. We will cycle cardiac enzymes and we will assess LV function non-invasively by echocardiography. [id number]/[facility] #: [id number] SHERRY
[2016-11-15] MEDS ORDERED: Hydrocortisone INJ* 100 MG VIAL IV ONE (17:00)
--- NOTE | 2016-11-15 17:31 | RAD ---
Indication: On respirator. Unresponsive. Myocardial infarction. Assess for potential intracranial hemorrhage. Comparison: No relevant prior exams available on the [facility] [place]. Technique: Noncontrast CT vertex of skull through foramen magnum. Report: The cerebral sulci, ventricles, and basal cisterns are within normal limits. Mild to moderate prominence of the cerebellar fissures reflecting atrophy. Negative for shaw matter white matter obscuration, intra or extra-axial hemorrhage, or mass effect. No fracture or suspicious lesion of the calvarium or skull base. Clear visualized paranasal sinuses and mastoid air spaces. Unremarkable scalp. IMPRESSION: 1. No evidence for intracranial hemorrhage or other acute intracranial process. 2. Mild to moderate cerebellar atrophy.
--- NOTE | 2016-11-15 17:33 | PN ---
Progress Note - Progress Note Note: Patient off porpofol and is not awakening. CT scan unrevealing. I have asked neurology to evaluate.
[2016-11-15] MEDS ORDERED: Piperac/Tazob 3.375 gm in NS* 3.375 GM/100 ML BAG IVPB SCH (18:00)
[2016-11-15] MEDS: Atorvastatin* 80 MG TAB PO SCH (18:15)
[2016-11-15] MEDS: Piperac/Tazob 3.375 gm in NS* 3.375 GM/100 ML BAG IVPB SCH (22:09)
[2016-11-15] MEDS ORDERED: Phenylephrine INJ* 10 MG/ML 1 ML VIAL (10 MG) ONE (22:24)
[2016-11-15] MEDS: Phenylephrine INJ* 50 MG in NS 0.9% 250 ML* 245 ML IV SCH (22:34)
[2016-11-16] MEDS: Norepinephrine 16MCG/ML IVPRE* 4,000 MCG/250 ML BAG IV SCH ×2 (00:56→02:43)
[2016-11-16] MEDS: Insulin LISPRO* 1 UNITS UNIT SUBCUT SCH ×2 (01:29→05:16)
[2016-11-16] MEDS: Chlorhexidine MOUTHWASH 0.12%* 15 ML UDC TOPICAL SCH ×2 (01:38→05:16)
[2016-11-16] MEDS: Phenylephrine INJ* 50 MG in NS 0.9% 250 ML* 245 ML IV SCH (03:04)
[2016-11-16] MEDS: Norepinephrine VIAL* 4 MG in NS 0.9% 250 ML* 246 ML IVPB SCH ×2 (04:28→06:06)
[2016-11-16] MEDS: Piperac/Tazob 3.375 gm in NS* 3.375 GM/100 ML BAG IVPB SCH (05:16)
[2016-11-16 05:27] LABS: Hematocrit 41 % (42-52); Hemoglobin 12.2 g/dl (14.0-18.0); Mean Corpuscular HGB Conc 30 g/dl (31-36); Mean Corpuscular Hemoglobin 29 pg (27-31); Mean Corpuscular Volume 97 fL (80-94); Mean Platelet Volume 9 um3 (7.4-10.4); Red Blood Count 4.21 10^6/ul (4.0-5.4); Red Cell Distribution Width 15 % (10.5-15); White Blood Count 12.5 10^3/ul (3.5-10.8)
[2016-11-16 05:28] LABS: Add Diff/Slide Review? Slide Review Added; Comments Flag Yes
[2016-11-16 05:44] LABS: Albumin 2.6 g/dL (3.2-5.2); BUN/Creatinine Ratio 10.5 (8-20); Calcium 7.1 mg/dL (8.6-10.3); EGFR African American 13.5 (>60); EGFR Non-African American 10.5 (>60); Globulin 2.7 g/dL (2-4); Total Bilirubin 1.6 mg/dL (0.2-1.0); Total Protein 5.3 g/dL (6.4-8.9)
[2016-11-16 05:50] LABS: Potassium 7.2 mmol/L (3.5-5.0)
[2016-11-16 07:28] LABS: BUN/Creatinine Ratio 10.5 (8-20); EGFR African American 13.7 (>60); EGFR Non-African American 10.6 (>60)
[2016-11-16 07:32] VITALS: BP 40/26
[2016-11-16 07:33] LABS: Potassium 7.6 mmol/L (3.5-5.0)
--- NOTE | 2016-11-17 02:58 | DS ---
NOTE: DATE OF ADMISSION: 11/14/16 DATE OF : 11/16/16 FINAL DIAGNOSIS: Multiorgan failure with subsequent demise. SECONDARY DIAGNOSES: 1. Probable acute ST segment elevation posterior wall myocardial infarction. 2. Multivessel coronary artery disease. 3. Acute renal failure. 4. Acute hepatic failure. 5. Refractory hypotension. 6. History of non-insulin requiring diabetes. 7. Prior history of hypertension. 8. History of hyperlipidemia. HISTORY OF PRESENT ILLNESS: The patient was an 81-year-old gentleman who presented to [facility] on 11/13/16 with complaints of several days of burping and not feeling well and shortness of breath. Please refer to H and P for complete details. The patient finally was convinced by the family to seek medical attention and was brought into the emergency room by the ambulance in service. In the emergency room, the patient was evaluated by Dr. Alyce Melvin. Initial EKG timed 2305, revealed significant ST segment depression in 1, aVL, V2 through V6 with minimal ST elevation in V3. The chest x-ray report had suggested the presence of mild alveolar interstitial pulmonary edema. Initial vital signs revealed a blood pressure of 88/57 with a pulse of 109, afebrile. O2 saturation 91% on room air. The case apparently was discussed after laboratory results came back with a troponin of 20.[address] Sullivan, the guest services assistant race relations professor. After discussion was made with him, he instructed Dr. Melvin to contact me. I was called and a STEMI alert was called. In the emergency room, the patient had already been intubated by Dr. Alyce Melvin as he was tiring out from his progressive shortness of breath. Please refer to my consult note for more information with respect to that. Discussion was made with the as to proceeding to the cardiovascular laboratory after discussing the risks and benefits to her and explaining that from the blood tests alone it appeared that he had been having a heart attack for some time now. She understood the risks and benefits and wished to proceed. A phone call was made also to consult Dr. Dangelo Plasencia the tunnel mucker, notifying him that we were going to the cardiovascular laboratory and that the patient was in acute distress and was relatively hypotensive. Of note, the patient was placed on dopamine in the emergency room at 5 mcg/kg per minute, also on a propofol drip at 50 mcg per minute. During the cardiac catheterization, Dr. Dnagelo Plasencia the tunnel mucker aided in management of the hypotension and pressor therapy in addition to sedation. Cardiac catheterization was then performed with coronary arteriography, demonstrating a chronically totally occluded right coronary artery with collateral from the LAD to the PDA. The circumflex had a critical mid lesion of 90% to 95%. Prior to intervening, an intraaortic balloon pump was then placed from the left femoral approach. Intervention into the circumflex artery was performed with primary stenting utilizing a 2.5 x 60 mm long Synergy drug-eluting stent. Of note, there was transient no flow in the circumflex artery that responded to both thrombectomy in addition to Nipride administration. Attention was then turned to see whether or not the right coronary artery was more of an acute nature and attempts were made to cross it with multiple wires and not successful. At that point in time, the patient appeared to have stabilized to some degree and the procedure was stopped and the patient was brought to the intensive care unit for ongoing management. HOSPITAL COURSE: During the course of the hospitalization, the patient's cardiac enzymes peaked in less than 12 hours with a total CPK of 1608, MB of 248 , and a troponin of 45.86. The patient required multiple pressor therapy under the guidance of Dr. Dangelo Plasencia and continued sedation as he was intubated. His blood pressures remained in a low range; however, he was able to in general maintain a mean pressure in the 60s to 70s. He had augmented diastolic pressure of 100 by the intraaortic balloon pump. Over the course of the hospitalization, he had worsening renal insufficiency with a creatinine increasing from 1.3 to 1.7 to 2.34. He started having oliguria. His chest x- ray initially showed an acute pulmonary edema with a butterfly pattern and ventilation changes were made to help respirations and chest x-ray seemed to improve over time according to Dr. Plasencia. On 11/15/16, in the case folder, an echocardiogram was obtained, which showed fairly well- preserved left ventricular systolic function and no marked abnormalities of right ventricular systolic function. There was no evidence of significant mitral regurgitation. The aortic valve was somewhat thickened with at best mild aortic stenosis, clearly not significant as we were able on the cardiac catheterization to cross the aortic valve with a pigtail catheter. The decision was made to consider the possibility that the balloon pump was actually compromising flow to the kidney function. I discussed this along with Dr. Plasencia, the tunnel mucker, and as such, we opted with the patient with normal LV function to attempt to wean the balloon pump and place it on 1 to 2 and performed a repeat echocardiogram and then put it on 1 to 4 for at least 2 hours and repeated the echocardiogram and showed that there was no deterioration of overall left ventricular systolic function. The intraaortic balloon pump was moved. Throughout the course of the rest of the day, the patient continued to require increasing dosages of medication for pressure support. He was exquisitely sensitive to dopamine, which would produce tachycardia and as such had to be weaned down with norepinephrine and phenylephrine utilized. Despite all of this, his pressure continued to be poor at best. His lactic acid level which was 1.3 on admission , was 2.1 on the and at the beginning of the day on the was 1.8. The decision was made in the mid portion of the day on 11/15/16 after the balloon pump was removed with no compromise in systolic pressure, to stop the propofol and stop any type of sedation medication to see what his mental status was. Despite stopping the medication, he still was not responding. 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 From that point on over the coarse towards the evening, his blood pressure continued to slip, his pulse rate continued to elevate, he became febrile and Dr. Plasencia placed him on antibiotic therapy. Continuing to watch him with no sedation, he continued not to awake. Neurology was notified earlier in the day of this and had planned to see the patient the next day with a consideration for a EEG to be performed. As the day wore on, the patient's hemodynamics clearly continued to deteriorate and Dr. Plasencia had a lengthy discussion with the family as to overall prognosis and the ability of him to have long-term improvement. With that in mind and his discussion where he felt that this was not the case and felt he was developing multiorgan failure, the family opted to make the patient a do not resuscitate/comfort only. With that, over the course of the evening with his worsening renal insufficiency, he proceeded to deteriorate even further. He eventually developed worsening hypotension and had a cardiac arrest and peacefully. Of note, his family was called in prior to him passing away so that they could there with him. His laboratory results from the final day had demonstrated that he was in shock liver as well. A lactic acid level had now risen to 14, consistent with multiorgan failure and systemic shock. I met with the family and answered all of their questions to their satisfaction and they thanked me and all providers and nursing care for what they felt was excellent quality of care during this stressing time. I told them that if there is anything I could do to help, please feel free to contact me and they took that under advisement. CC: Williams Lowery MD * [id number]/CPS #: [id number] MTDD
[2016-11-17] MEDS ORDERED: Piperac/Tazob 3.375 gm in NS* 3.375 GM/100 ML BAG IVPB SCH (18:00)
== END 2016-11-16 07:15 | disposition expired | DRG 270 ==
LOC: ED 22:44 → CHICATH 11-14 01:09 → ICU 11-14 03:39
PROVIDERS: ADMIT Internal Medicine Cardiovascular Disease; ATTEND Internal Medicine Cardiovascular Disease
PROC: 5A02210 Assistance with Cardiac Output using Balloon Pump, Continuous (ICD-10-PCS; 2016-11-14)
PROC: 5A1945Z Respiratory Ventilation, 24-96 Consecutive Hours (ICD-10-PCS; 2016-11-14)
PROC: 4A023N7 Measurement of Cardiac Sampling and Pressure, Left Heart, Percutaneous Approach (ICD-10-PCS; 2016-11-14)
PROC: B211YZZ Fluoroscopy of Multiple Coronary Arteries using Other Contrast (ICD-10-PCS; 2016-11-14)
PROC: B215YZZ Fluoroscopy of Left Heart using Other Contrast (ICD-10-PCS; 2016-11-14)
PROC: B310YZZ Fluoroscopy of Thoracic Aorta using Other Contrast (ICD-10-PCS; 2016-11-14)
PROC: 0BH17EZ Insertion of Endotracheal Airway into Trachea, Via Natural or Artificial Opening (ICD-10-PCS; 2016-11-14)
PROC: 027044Z Dilation of Coronary Artery, One Artery with Drug-eluting Intraluminal Device, Percutaneous Endoscopic Approach (ICD-10-PCS; principal; 2016-11-14 07:00)
DX: I21.29 ST elevation (STEMI) myocardial infarction involving other sites (principal); K72.00 Acute and subacute hepatic failure without coma; R57.0 Cardiogenic shock; N17.9 Acute kidney failure, unspecified; J80 Acute respiratory distress syndrome; I25.10 Atherosclerotic heart disease of native coronary artery without angina pectoris; I11.0 Hypertensive heart disease with heart failure; I50.9 Heart failure, unspecified; I95.89 Other hypotension; E11.9 Type 2 diabetes mellitus without complications; E78.5 Hyperlipidemia, unspecified; E66.9 Obesity, unspecified; H35.30 Unspecified macular degeneration; H91.90 Unspecified hearing loss, unspecified ear; Z66 Do not resuscitate; Z96.641 Presence of right artificial hip joint; Z79.82 Long term (current) use of aspirin; Z87.891 Personal history of nicotine dependence; Z79.84 Long term (current) use of oral hypoglycemic drugs; Z79.899 Other long term (current) drug therapy; Z68.33 Body mass index [BMI] 33.0-33.9, adult
CPT/HCPCS: 36415; 70450; 71010; 80048; 80053; 80061; 82533; 82550; 82553; 82803; 82947; 83605; 83735; 83880; 84132; 84484; 85025; 85610; 85730; 87040; 87641; 93005; 93306; 94002; 94003; 94760; A9270-GY; C1725; C1757; C1760; C1769; C1876; C1887; C9606-LC; J0330; J1265; J1327; J1644; J1720; J2001; J2060; J2250; J2543; J2704; J3010